=== PATIENT | female | born 1955 | race Asian ===

== ENCOUNTER → 2020-10-14 15:58 | Outpatient (CLI) | payer OTHER, SELFPAY ==
--- NOTE | ~2020-10-14 | MM_ITS ---
EXAMINATION: MM screening jan BI w bayron HISTORY: Screening mammogram TECHNIQUE: Craniocaudal and mediolateral oblique 3-D tomosynthesis images were obtained and synthetic 2-D images were generated. CAD analysis was submitted and interpreted. COMPARISON: 07/2018, 07/12/2017, bilateral digital screening mammogram examinations BREAST PARENCHYMAL COMPOSITION: The breasts are heterogeneously dense, which may obscure small masses . FINDINGS: History of removal of breast implants 17-20 years ago. Occasional benign calcifications. Images were There is no evidence of suspicious mass, calcification, or architectural distortion to suggest malignancy in either breast. There has been no suspicious int erval change. IMPRESSION: 1. No mammographic evidence of malignancy. 2. Recommend routine screening mammography in one year. BI-RADS Category 2: Benign Reviewed, dictated and finalized at location A.
== END ==
PROVIDERS: Visit Provider Obstetrics & Gynecology
DX: Z12.31 Encounter for screening mammogram for malignant neoplasm of breast (principal)
CPT/HCPCS: 77063; 77067

== ENCOUNTER 2021-02-11 09:04 | Outpatient (CLI) | payer OTHER, SELFPAY ==
[2021-02-11 10:41] LABS: Basophils Percent Auto 0.4 % (0.2-1.2); Eosinophils Absolute Auto 0.4 K/mm3 (0-0.3); Eosinophils Percent Auto 5.2 % (0-4.4); Hematocrit 35.8 % (37.0-47.0); Hemoglobin 11.6 g/dL (12.0-15.0); Immature Granulocyte Absolute 0.02 K/mm3 (0.00-0.031); Immature Granulocyte Percent A 0.3 % (0-0.5); Lymphocytes Absolute Auto 2.46 K/mm3 (0.9-3.2); Lymphocytes Percent Auto 34.6 % (18.3-44.2); Mean Corpuscular HGB Conc 32.4 g/dl (32-36); Mean Platelet Volume 10.4 fl (7.4-10.4); Monocytes Absolute Auto 0.7 K/mm3 (0.1-0.6); Monocytes Percent Auto 9.3 % (2.6-8.5); Neutrophils Absolute Auto 3.6 K/mm3 (1.3-6.7); Neutrophils Percent Auto 50.2 % (45.5-73.1); Platelet Count Result 227 k/mm3 (150-375); Red Blood Count 3.51 M/mm3 (4.2-5.4); Red Cell Distribution Width 12.6 % (11.5-14.5); White Blood Count 7.1 K/mm3 (4.5-10.0)
[2021-02-11 10:43] LABS: Add Urine Microscopic? YES; Appearance Urine Clear (Clear); Bilirubin Urine Negative (Negative); Blood Urine Negative (Negative); Color Urine Yellow (Yellow); Glucose Urine UA Negative (Negative); Ketones Urine Negative (Negative); Leukocyte Esterase Ur Negative LEU/UL (Negative); Mucus Urine Rare /lpf; Nitrate Urine Negative (Negative); Protein Urine Negative (Negative); Specific Grav Ur 1.014 (1.001-1.035); Urobilinogen Urine Negative mg/dL (<2.0); WBC Urine 0-3 /hpf
[2021-02-11 10:46] LABS: Alanine Aminotransferase 13 U/L (4-35); Albumin Level 4.8 g/dL (3.5-5.1); Alkaline Phosphatase 72 U/L (38-126); Anion Gap 10 mmol/L (8-16); Aspartate Amino Transferase 26 U/L (14-36); Bilirubin,Total 0.4 mg/dL (0.2-1.3); Blood Urea Nitrogen 22 mg/dL (7-17); Calcium 9.3 mg/dL (8.4-10.2); Carbon Dioxide 28 mmol/L (22-30); Chloride 105 mmol/L (98-107); Cholesterol 218 mg/dL (0-200); Estimated Glomerular Filt Rate > 60; Glucose 98 mg/dL (65-110); HDL Direct 55 mg/dL; Potassium 3.9 mmol/L (3.4-5.0); Sodium 143 mmol/L (137-145); Triglycerides 115 mg/dL (<150); Uric Acid 4.6 mg/dL (2.5-7.5)
[2021-02-11 10:52] LABS: LDL Cholesterol Direct 117 mg/dL
[2021-02-11 11:12] LABS: Vitamin D 25 Hydroxy 45.9 ng/mL
[2021-02-11 12:13] LABS: Folic Acid > 20.0 ng/mL (2.76->20)
== END 2021-02-11 09:05 | disposition home or self-care (01) ==
PROVIDERS: PCP Internal Medicine; Visit Provider Internal Medicine
DX: E53.8 Deficiency of other specified B group vitamins (principal); R00.2 Palpitations; M81.0 Age-related osteoporosis without current pathological fracture
CPT/HCPCS: 36415; 80053; 80061; 81001; 82306; 82607; 82746; 84443; 84550; 85025

== ENCOUNTER 2021-03-15 02:22 | Day surgery (SDC) | payer OTHER, SELFPAY ==
[2021-03-01 13:05] VITALS: BMI 19.7
--- NOTE | 2021-03-14 13:26 | PM.HPGS ---
History of Present Illness History of Present Illness Consent: Risks, benefits, and alternatives have been discussed and questions answered. Patient agrees to proceed with procedure. Chief complaint: neoplasm screening Narrative: Unique Dumont is a 66 year old female referred for colon cancer screening. Review of Systems Review of Systems: All systems reviewed & are unremarkable except as noted in HPI and below PMFSH Social History Social History Smoking status: Never smoker Alcohol intake: never Substance use: never Substance use type: does not use Living arrangements: with family Spiritual care concerns: No Meds Home Medications and Allergies Home Medications Medication Instructions Recorded Confirmed Type metoprolol succinate 25 mg PO DAILY 03/01/21 03/01/21 History Allergies Allergy/AdvReac Type Severity Reaction Status Date / Time Shrimp Allergy Mild Itching Uncoded 03/01/21 13:01 Exam Resp: Auscultation: clear to auscultation bilaterally Cardio: Rate: regular rate Rhythm: regular rhythm GI: GI Palp: Yes Soft to palpation and No Tenderness to palpation present (GI) Assessment and Plan Assessment and plan (1) Colon cancer screening: Code(s): Z12.11 - Encounter for screening for malignant neoplasm of colon Status: Acute Assessment and Plan: Colonoscopy with possible biopsy or polypectomy or cautery or injection of substances.
[2021-03-15 09:44] VITALS: BP 137/76; PULSE 90; RESP 16; TEMP 37.1; O2SAT 100; BMI 19.2
[2021-03-15] MEDS: LACTATED RINGERS 1,000 ML 150 ML IV CONT (09:55)
--- NOTE | 2021-03-15 10:28 | WPDANESEPPF ---
Anes - Initial Pre Proc Eval Procedure: Operation Date: 03/15/21 11:15 Proposed Procedures p Screening Colonoscopy - Abiodun Polk MD Date/Time: 03/15/21 10:28 Surgeon: Abiodun Polk MD Pre Op Diagnosis: neoplasm screening Patient Data Age: 66 Gender: F Height: 1.65 m Weight: 52.5 kg Last Vital Signs Temp 98.8 F 03/15/21 09:44 Pulse 90 03/15/21 09:44 Resp 16 03/15/21 09:44 BP 137/76 03/15/21 09:44 Pulse Ox 100 03/15/21 09:44 Allergies Allergy/AdvReac Type Severity Reaction Status Date / Time Shrimp Allergy Mild Itching Uncoded 03/01/21 13:01 Home Medications Medication Instructions Recorded Confirmed Type metoprolol succinate 25 mg PO DAILY 03/01/21 03/01/21 History Patient hx anesthesia problems: none Family hx anesthesia problems: none Results Review: All pre-operative results and documents have been reviewed as part of the pre-operative evaluation. [facility] Past Medical History Medical History (Updated 03/15/21 @ 10:31 by Ortega Bustos MD) Anxiety Depression Social History Social History Smoking status: Never smoker Alcohol intake: never Substance use: never Substance use type: does not use Living arrangements: with family Spiritual care concerns: No Anes - Eval Final PreProcedure Day of Procedure 03/15/21 10:28 Patient weight: normal Heart: regular rate and rhythm Lungs: clear to auscultation Airway: Mallampati scale class II Neurological: alert and oriented Last oral intake: >/= 8 hours ASA classification: II Emergent: no Anesthetic plan: proceed Anesthesia type and monitoring: general GIVS and standard monitoring Results Review: All pre-operative results and documents have been reviewed as part of the pre-operative evaluation. Informed Consent: The patient's anesthetic plan and its attendant risks and benefits were discussed with the patient/family/POA. Questions were solicited and answers provided to the satisfaction of the patient/family/POA.
--- NOTE | 2021-03-15 10:38 | P.PNAN_ITS ---
Anes - Initial Pre Proc Eval Procedure: Operation Date: 03/15/21 11:15 Proposed Procedures p Screening Colonoscopy - Abiodun Polk MD Date/Time: 03/15/21 10:38 Surgeon: Abiodun Polk MD Pre Op Diagnosis: neoplasm screening Patient Data Age: 66 Gender: F Height: 1.65 m Weight: 52.5 kg Last Vital Signs Temp 98.8 F 03/15/21 09:44 Pulse 90 03/15/21 09:44 Resp 16 03/15/21 09:44 BP 137/76 03/15/21 09:44 Pulse Ox 100 03/15/21 09:44 Allergies Allergy/AdvReac Type Severity Reaction Status Date / Time Shrimp Allergy Mild Itching Uncoded 03/01/21 13:01 Home Medications Medication Instructions Recorded Confirmed Type metoprolol succinate 25 mg PO DAILY 03/01/21 03/01/21 History Patient hx anesthesia problems: none Family hx anesthesia problems: none Results Review: All pre-operative results and documents have been reviewed as part of the pre-operative evaluation. [facility] Past Medical History Medical History (Updated 03/15/21 @ 10:38 by Ortega Bustos MD) Hypertension mild Social History Social History Smoking status: Never smoker Alcohol intake: never Substance use: never Substance use type: does not use Living arrangements: with family Spiritual care concerns: No Anes - Eval Final PreProcedure Day of Procedure 03/15/21 10:38 Patient weight: normal Heart: regular rate and rhythm Lungs: clear to auscultation Airway: Mallampati scale class II Neurological: alert and oriented Last oral intake: >/= 8 hours ASA classification: II Emergent: no Anesthetic plan: proceed Anesthesia type and monitoring: general GIVS and standard monitoring Results Review: All pre-operative results and documents have been reviewed as part of the pre-operative evaluation. Informed Consent: The patient's anesthetic plan and its attendant risks and benefits were discussed with the patient/family/POA. Questions were solicited and answers provided to the satisfaction of the patient/family/POA.
[2021-03-15] MEDS: SIMETHICONE ORAL SUSPENSION 20 MG/0.3 ML 30 ML BOTTLE 0.6 ML IRRIGATION (11:15)
[2021-03-15 11:19] VITALS: BP 123/70; PULSE 74; RESP 18; O2SAT 100
[2021-03-15 11:29] VITALS: BP 129/73; PULSE 73; RESP 17; O2SAT 100
[2021-03-15 11:39] VITALS: BP 131/76; PULSE 70; RESP 18; O2SAT 100
== END 2021-03-15 11:50 | disposition home or self-care (01) ==
PROVIDERS: PCP Internal Medicine; Visit Provider Internal Medicine Gastroenterology
PROC: 0DJD8ZZ Inspection of Lower Intestinal Tract, Via Natural or Artificial Opening Endoscopic (ICD-10-PCS; CPT 45378; principal; 2021-03-15 11:15)
DX: Z12.11 Encounter for screening for malignant neoplasm of colon (principal); Z80.0 Family history of malignant neoplasm of digestive organs; I10 Essential (primary) hypertension; F41.8 Other specified anxiety disorders
CPT/HCPCS: 45378; J2001; J2704; J7120

== ENCOUNTER → 2021-12-19 10:15 | Outpatient (CLI) | payer OTHER, SELFPAY ==
--- NOTE | ~2021-12-19 | MM_ITS ---
EXAMINATION: MM screening [facility] BI w bayorn HISTORY: Screening mammogram TECHNIQUE: Craniocaudal and mediolateral oblique 3-D tomosynthesis images were obtained and synthetic 2-D images were generated. CAD analysis was submitted and interpreted. COMPARISON: 10/14/2020, 07/14/2018, 07/12/2017 BREAST PARENCHYMAL COMPOSITION: The breasts are heterogeneously dense, which may obscure small masses . FINDINGS: Scattered benign-appearing calcifications are present. There is no suspicious mass, calcifi cation, or architectural distortion to suggest malignancy in either breast. There has been no suspici ous interval change. IMPRESSION: 1. No mammographic evidence of malignancy. 2. Recommend routine screening mammography in one year. BI-RADS Category 2: Benign finding(s). Reviewed, dictated and finalized at location A.
== END ==
PROVIDERS: PCP Internal Medicine; Visit Provider Obstetrics & Gynecology
DX: Z12.31 Encounter for screening mammogram for malignant neoplasm of breast (principal)
CPT/HCPCS: 77063; 77067

== ENCOUNTER 2023-01-20 01:55 | Emergency (ER) | payer MEDICARE, OTHER, SELFPAY ==
[2023-01-20] VITALS (17 sets, daily range): BP systolic 103–152; BP diastolic 56–90; PULSE 70–98; RESP 13–19; TEMP 37.8; O2SAT 96–100
--- NOTE | ~2023-01-20 | XR_ITS ---
XR chest 2V DATE: 01/20/2023 02:27 INDICATION: Cough TECHNIQUE: PA and lateral views COMPARISON: June 14, 2016 CT chest June 10, 2013 2 view chest FINDINGS: Bilateral hyperinflation consistent with obstructive airways disease. No pulmonary infiltra te or consolidation, pleural effusion or pulmonary vascular congestion or pneumothorax is detected. Normal heart size. No hilar or mediastinal enlargement. Osteopenia. Mild thoracic dextroscoliosis. Degenerative spurring of the thoracic spine. IMPRESSION: Bilateral hyperinflation; no active cardiopulmonary disease Reviewed, dictated and finalized at location A.
--- NOTE | 2023-01-20 01:56 | ECG_ITS ---
Measurements Intervals [place] Rate: 91 P: 83 HI: 180 QRS: 68 QRSD: 78 T: 61 QT: 359 QTc: 443 Interpretive Statements SINUS RHYTHM FREQUENT VENTRICULAR PREMATURE COMPLEXES POSSIBLE LEFT ATRIAL ENLARGEMENT POSSIBLE LEFT VENTRICULAR HYPERTROPHY BORDERLINE ST-T WAVE ABNORMALITY- INFERIOR LEADS ABNORMAL ECG NO PREVIOUS ECG AVAILABLE FOR COMPARISON Electronically Signed On 01-20-2023 7:07:25 CDT by Alan Carcamo D.O.
[2023-01-20 02:19] LABS: Basophils Percent Auto 0.4 % (0.2-1.2); Eosinophils Absolute Auto 0.1 K/mm3 (0-0.3); Eosinophils Percent Auto 1.4 % (0-4.4); Hematocrit 37.4 % (37.0-47.0); Hemoglobin 12.3 g/dL (12.0-15.0); Immature Granulocyte Absolute 0.03 K/mm3 (0.00-0.031); Immature Granulocyte Percent A 0.3 % (0-0.5); Lymphocytes Absolute Auto 0.91 K/mm3 (0.9-3.2); Lymphocytes Percent Auto 10.1 % (18.3-44.2); Mean Corpuscular HGB Conc 32.9 g/dl (32-36); Mean Corpuscular Hemoglobin 32.9 pg (26-34); Mean Platelet Volume 9.6 fl (7.4-10.4); Monocytes Absolute Auto 0.6 K/mm3 (0.1-0.6); Monocytes Percent Auto 6.9 % (2.6-8.5); Neutrophils Absolute Auto 7.3 K/mm3 (1.3-6.7); Neutrophils Percent Auto 80.9 % (45.5-73.1); Platelet Count Result 186 k/mm3 (150-375); Red Blood Count 3.74 M/mm3 (4.2-5.4); Red Cell Distribution Width 12.6 % (11.5-14.5)
[2023-01-20 02:29] LABS: Alanine Aminotransferase 16 U/L (6-35); Albumin Level 4.5 g/dL (3.5-5.1); Alkaline Phosphatase 89 U/L (38-126); Anion Gap 9 mmol/L (8-16); Aspartate Amino Transferase 30 U/L (14-36); Bilirubin,Total 0.5 mg/dL (0.2-1.3); Blood Urea Nitrogen 19 mg/dL (7-17); Calcium 9.1 mg/dL (8.4-10.2); Carbon Dioxide 27 mmol/L (22-30); Chloride 103 mmol/L (98-107); Estimated CRCL calculation 61 ml/min; Estimated Glomerular Filt Rate > 60; Glucose 125 mg/dL (65-110); Lipase 145 U/L (23-300); Potassium 4.1 mmol/L (3.4-5.0); Sodium 139 mmol/L (137-145)
[2023-01-20 02:32] LABS: INR 0.9; Prothrombin Time 12.9 Seconds (11.1-14.7)
[2023-01-20 02:33] LABS: Partial Thromboplastin Time 31.4 SECONDS (22.3-36.8)
--- NOTE | 2023-01-20 02:38 | ED.CHESTPAIN ---
HPI - Chest Pain General Chief Complaint: Chest Pain Stated Complaint: chest pain, Time Seen by Provider: 01/20/23 02:11 History of Present Illness HPI narrative: Patient presents to the emergency department with chest discomfort. Symptoms have been ongoing for the past few hours. She received the COVID-vaccine and a shingles vaccine earlier today. However she has been having episodes of chest discomfort and was scheduled to get a stress test [facility]. She was unable to get the test done because their computer systems are down. Patient denies other review of systems other than feeling hot and chills. Related Data Home Medications Medication Instructions Recorded Confirmed metoprolol succinate 25 mg 25 mg PO DAILY 03/01/21 03/01/21 tablet,extended release 24 hr Allergies Allergy/AdvReac Type Severity Reaction Status Date / Time Shrimp Allergy Mild Itching Uncoded 01/20/23 01:55 Review of Systems Review of Systems: Review of systems is negative except what is documented in the HPI [facility] Past Medical History Medical History (Updated 01/20/23 @ 03:46 by Addis Barnes MD) Hypertension mild Social History Social History Smoking status: Never smoker Alcohol intake: never Substance use: never Substance use type: does not use Living arrangements: with family Spiritual care concerns: No Exam Narrative: GENERAL: Well-appearing, well-nourished, and in no acute distress. HEAD: Normocephalic, atraumatic. EYES: PERRLA and EOMI. ENT: Nares clear, no rhinorrhea or epistaxis. Mucous membranes moist. NECK: Supple. CHEST: Clear to auscultation. No respiratory distress. HEART: Regular rate and rhythm. ABDOMEN: Soft, nontender, nondistended. EXTREMITIES: Normal range of motion. No edema. SKIN: Warm, dry, no rash. NEURO: No focal deficits. Alert and oriented x3. PSYCH: Normal mood and affect. Course Course Emergency Course: Labs ordered and grossly unremarkable. CBC CMP urinalysis and troponin all within normal limits. Mild elevation of blood sugar. Patient was scheduled to have stress test at [facility] for recurrent episodes of chest pain however heart score is 2 and troponin is negative Vital Signs Vital signs: Vital Signs Temperature 37.8 C H 01/20/23 02:04 Pulse Rate 98 09/10/23 02:04 Respiratory Rate 14 01/20/23 02:04 Blood Pressure 152/90 H 01/20/23 02:04 Pulse Oximetry 96 01/20/23 02:04 Oxygen Delivery Room Air 01/20/23 02:04 Temperature 37.8 C H 01/20/23 02:04 Pulse Rate 98 01/20/23 02:04 Respiratory Rate 14 01/20/23 02:04 Blood Pressure 152/90 H 01/20/23 02:04 Pulse Oximetry 100 01/20/23 02:27 Oxygen Delivery Room Air 01/20/23 02:27 MDM - Chest Pain MDM Narrative Medical decision making narrative: Differential diagnosis includes but not limited to chest wall discomfort, pneumonia, pleurisy, costochondritis, CAD Telemetry ordered due to patient having chest pain to evaluate for dysrhythmia. Sinus tachycardia rate of 108 evaluated by myself Lab Data 01/20/23 02:13 01/20/23 02:13 Labs: Lab Results 01/20/23 Range/Units 02:13 WBC 9.0 (4.5-10.0) K/mm3 RBC 3.74 L (4.2-5.4) M/mm3 Hgb 12.3 (12.0-15.0) g/dL Hct 37.4 (37.0-47.0) % MCV 100.0 (80-100) fl MCH 32.9 (26-34) pg MCHC 32.9 (32-36) g/dl RDW 12.6 (11.5-14.5) % Plt Count 186 (150-375) k/mm3 MPV 9.6 (7.4-10.4) fl Immature Gran % (Auto) 0.3 (0-0.5) % Neut % (Auto) 80.9 H (45.5-73.1) % Lymph % (Auto) 10.1 L (18.3-44.2) % Boyle % (Auto) 6.9 (2.6-8.5) % Eos % (Auto) 1.4 (0-4.4) % Baso % (Auto) 0.4 (0.2-1.2) % Lymph # (Auto) 0.91 (0.9-3.2) K/mm3 Boyle # (Auto) 0.6 (0.1-0.6) K/mm3 Eos # (Auto) 0.1 (0-0.3) K/mm3 Baso # (Auto) 0.0 (0.0-0.1) K/mm3 Abs Immat Gran (auto) 0.03 (0.00-0.031) K/mm3 Absol
[2023-01-20 02:41] LABS: Troponin I < 0.012 ng/mL (0.000-0.034)
[2023-01-20] MEDS: ACETAMINOPHEN 325 MG TABLET 650 MG PO (02:48)
[2023-01-20] MEDS: ASPIRIN 81 MG CHEWABLE TABLET 324 MG PO (02:48)
[2023-01-20 06:10] LABS: Troponin I < 0.012 ng/mL (0.000-0.034)
== END 2023-01-20 06:42 | disposition home or self-care (01) ==
PROVIDERS: Emergency Provider Emergency Medicine; PCP Internal Medicine
DX: R07.9 Chest pain, unspecified (principal); I10 Essential (primary) hypertension
CPT/HCPCS: 36415; 71046; 80053; 83690; 84484; 85025; 85610; 85730; 93005; 99284; A9270

== ENCOUNTER → 2023-02-27 10:40 | Outpatient (CLI) | payer MEDICARE, OTHER, SELFPAY ==
--- NOTE | ~2023-02-27 | MM_ITS ---
EXAMINATION: MM screening jan BI w bayron HISTORY: Screening TECHNIQUE: Craniocaudal and mediolateral oblique 3-D tomosynthesis images were obtained and synthetic 2-D images were generated. CAD analysis was submitted and interpreted. COMPARISON: Comparison to multiple prior studies sequentially, with oldest reviewed study dated 06/27. BREAST PARENCHYMAL COMPOSITION: There are scattered areas of fibroglandular density. FINDINGS: There is no evidence of suspicious mass, calcification, or architectural distortion to sugg est malignancy in either breast. There has been no suspicious interval change. IMPRESSION: 1. No mammographic evidence of malignancy. 2. Recommend routine screening mammography in one year. BI-RADS Category 1: Negative Reviewed, dictated and finalized at location A.
== END ==
PROVIDERS: PCP Internal Medicine; Visit Provider Internal Medicine
DX: Z12.31 Encounter for screening mammogram for malignant neoplasm of breast (principal)
CPT/HCPCS: 77063; 77067

== ENCOUNTER 2023-03-21 09:21 | Outpatient (CLI) | payer MEDICARE, OTHER, SELFPAY ==
[2023-03-21 10:37] LABS: Parathyroid Intact 30.1 pg/mL (7.5-53.5)
[2023-03-24 20:58] LABS: Osteocalcin 19 ng/mL (8-32)
== END 2023-03-21 09:22 | disposition home or self-care (01) ==
PROVIDERS: PCP Internal Medicine; Visit Provider Internal Medicine Endocrinology, Diabetes & Metabolism
DX: M81.0 Age-related osteoporosis without current pathological fracture (principal)
CPT/HCPCS: 36415; 83937; 83970

== ENCOUNTER 2023-03-25 09:40 | Outpatient (NON) | payer MEDICARE, OTHER, SELFPAY ==
[2023-03-25 10:29] LABS: Total Volume 24 Hour Urine 2000 ml
[2023-03-25 10:38] LABS: Creatinine 24 Hour Urine 0.9 gm/24 (0.8-1.8); Creatinine Urine 48.5 mg/dL
[2023-03-28 12:00] LABS: Total Volume 2000 mL; Urine Calcium 20.4 mg/dL
== END 2023-03-25 09:41 | disposition home or self-care (01) ==
LOC: ANHLAB 09:42
PROVIDERS: PCP Internal Medicine; Visit Provider Internal Medicine Endocrinology, Diabetes & Metabolism
DX: M81.0 Age-related osteoporosis without current pathological fracture (principal)
CPT/HCPCS: 81050; 82340; 82570

== ENCOUNTER 2023-04-30 10:42 | Outpatient (CLI) | payer MEDICARE, OTHER, SELFPAY ==
[2023-04-30 11:37] LABS: Total Volume 24 Hour Urine 800 ml
[2023-04-30 11:49] LABS: Creatinine 24 Hour Urine 0.7 gm/24 (0.8-1.8); Creatinine Urine 98.7 mg/dL
[2023-05-07 14:31] LABS: Total Volume 800 mL; Urine Calcium 31.6 mg/dL
== END 2023-04-30 10:43 | disposition home or self-care (01) ==
LOC: ANHLAB 10:44
PROVIDERS: PCP Internal Medicine; Visit Provider Internal Medicine Endocrinology, Diabetes & Metabolism
DX: M81.0 Age-related osteoporosis without current pathological fracture (principal); R82.994 Hypercalciuria
CPT/HCPCS: 81050; 82340; 82570

== ENCOUNTER 2023-10-28 09:27 | Outpatient (CLI) | payer MEDICARE, OTHER, SELFPAY ==
[2023-10-28 10:27] LABS: Albumin Level 4.7 g/dL (3.5-5.1); Anion Gap 9 mmol/L (4-12); Blood Urea Nitrogen 26 mg/dL (7-17); Calcium 9.6 mg/dL (8.4-10.2); Carbon Dioxide 28 mmol/L (22-30); Chloride 106 mmol/L (98-107); Estimated Glomerular Filt Rate > 60; Glucose 102 mg/dL (65-110); Phosphorus 4.6 mg/dL (2.5-4.5); Sodium 143 mmol/L (137-145)
[2023-10-28 10:45] LABS: Vitamin D 25 Hydroxy 52.1 ng/mL
[2023-10-28 10:53] LABS: Creatinine 24 Hour Urine 0.9 gm/24 (0.8-1.8); Total Volume 24 Hour Urine 850 ml
== END 2023-10-28 09:28 | disposition home or self-care (01) ==
LOC: ANHLAB 09:32
PROVIDERS: PCP Internal Medicine; Visit Provider Internal Medicine Endocrinology, Diabetes & Metabolism
DX: R82.994 Hypercalciuria (principal); M81.0 Age-related osteoporosis without current pathological fracture; R79.89 Other specified abnormal findings of blood chemistry
CPT/HCPCS: 36415; 80069; 81050; 82306; 82340; 82570

== ENCOUNTER 2024-01-23 11:08 | Outpatient (CLI) | payer MEDICARE, OTHER, SELFPAY ==
[2024-01-23 12:12] LABS: Albumin Level 4.5 g/dL (3.5-5.1); Anion Gap 11 mmol/L (4-12); Blood Urea Nitrogen 23 mg/dL (7-17); Calcium 9.5 mg/dL (8.4-10.2); Carbon Dioxide 29 mmol/L (22-30); Chloride 100 mmol/L (98-107); Estimated Glomerular Filt Rate > 60; Glucose 99 mg/dL (65-110); Phosphorus 4.2 mg/dL (2.5-4.5); Potassium 3.8 mmol/L (3.4-5.0); Sodium 140 mmol/L (137-145)
[2024-01-23 12:12] LABS: Total Volume 24 Hour Urine 1500 ml
[2024-01-23 12:21] LABS: Creatinine 24 Hour Urine 1.1 gm/24 (0.8-1.8); Creatinine Urine 78.4 mg/dL
== END 2024-01-23 11:09 | disposition home or self-care (01) ==
PROVIDERS: PCP Internal Medicine; Visit Provider Internal Medicine Endocrinology, Diabetes & Metabolism
DX: R82.994 Hypercalciuria (principal); M81.0 Age-related osteoporosis without current pathological fracture; R79.89 Other specified abnormal findings of blood chemistry
CPT/HCPCS: 36415; 80069; 81050; 82340; 82570

== ENCOUNTER 2024-04-28 10:52 | Outpatient (CLI) | payer MEDICARE, OTHER, SELFPAY ==
[2024-04-28 13:40] LABS: Albumin Level 4.5 g/dL (3.5-5.1); Anion Gap 6 mmol/L (4-12); Blood Urea Nitrogen 22 mg/dL (7-17); Calcium 9.8 mg/dL (8.4-10.2); Carbon Dioxide 30 mmol/L (22-30); Chloride 105 mmol/L (98-107); Estimated Glomerular Filt Rate > 60; Glucose 82 mg/dL (65-110); Phosphorus 3.9 mg/dL (2.5-4.5); Potassium 3.7 mmol/L (3.4-5.0); Sodium 141 mmol/L (137-145)
== END 2024-04-28 10:53 | disposition home or self-care (01) ==
PROVIDERS: PCP Internal Medicine; Visit Provider Internal Medicine Endocrinology, Diabetes & Metabolism
DX: M81.0 Age-related osteoporosis without current pathological fracture (principal)
CPT/HCPCS: 36415; 80069

== ENCOUNTER 2024-04-30 09:46 | Outpatient (NON) | payer MEDICARE, OTHER, SELFPAY ==
[2024-04-30 11:13] LABS: Creatinine Urine 95.6 mg/dL
[2024-04-30 12:53] LABS: Creatinine 24 Hour Urine 0.9 gm/24 (0.8-1.8); Total Volume 24 Hour Urine 950 ml
== END 2024-04-30 09:47 | disposition home or self-care (01) ==
LOC: ANHLAB 09:47
PROVIDERS: PCP Internal Medicine; Visit Provider Internal Medicine Endocrinology, Diabetes & Metabolism
DX: R82.994 Hypercalciuria (principal)
CPT/HCPCS: 81050; 82340; 82570

== ENCOUNTER 2024-06-01 08:13 | Outpatient (CLI) | payer MEDICARE, OTHER, SELFPAY ==
[2024-06-01 10:27] LABS: Total Volume 24 Hour Urine 2300 ml
[2024-06-01 10:31] LABS: Creatinine 24 Hour Urine 0.9 gm/24 (0.8-1.8); Creatinine Urine 40.5 mg/dL
== END 2024-06-01 08:14 | disposition home or self-care (01) ==
LOC: ANHLAB 08:14
PROVIDERS: PCP Internal Medicine; Visit Provider Internal Medicine Endocrinology, Diabetes & Metabolism
DX: R82.994 Hypercalciuria (principal); M81.0 Age-related osteoporosis without current pathological fracture
CPT/HCPCS: 81050; 82340; 82570

== ENCOUNTER 2024-08-12 13:04 | Outpatient (CLI) | payer MEDICARE, OTHER, SELFPAY ==
--- NOTE | ~2024-08-12 | MM_ITS ---
EXAMINATION: MM screening [facility] BI w bayron HISTORY: Screening TECHNIQUE: Craniocaudal and mediolateral oblique 3-D tomosynthesis images were obtained and synthetic 2-D images were generated. CAD analysis was submitted and interpreted. COMPARISON: Comparison to multiple prior studies sequentially, with oldest reviewed study dated 06/25. BREAST PARENCHYMAL COMPOSITION: Dense: The breasts are heterogeneously dense, which may obscure small masses FINDINGS: There are coarse dystrophic calcifications in the upper inner quadrant of the right breast, posterior third, consistent with fat necrosis. There are benign vascular calcifications. There is no evidence of suspicious mass, calcification, or architectural distortion to suggest malignancy in eit her breast. There has been no suspicious interval change. IMPRESSION: 1. No mammographic evidence of malignancy. 2. Recommend routine screening mammography in one year. BI-RADS Category 2: Benign finding(s). Reviewed, dictated and finalized at location A.
== END 2024-08-12 13:05 | disposition home or self-care (01) ==
LOC: MICIMG 13:05
PROVIDERS: PCP Internal Medicine; Visit Provider Internal Medicine
DX: Z12.31 Encounter for screening mammogram for malignant neoplasm of breast (principal)
CPT/HCPCS: 77063; 77067

== ENCOUNTER 2024-10-29 10:55 | Outpatient (CLI) | payer MEDICARE, OTHER, SELFPAY ==
[2024-10-29 11:37] LABS: Add Urine Microscopic? YES; Appearance Urine Clear (Clear); Bacteria Urine None Seen /hpf; Bilirubin Urine Negative (Negative); Blood Urine Trace (Negative); Color Urine Yellow (Yellow); Glucose Urine UA Negative (Negative); Ketones Urine Negative (Negative); Leukocyte Esterase Ur Negative LEU/UL (Negative); Nitrate Urine Negative (Negative); Non Pathogenic Casts 0-2; Protein Urine Negative (Negative); Specific Grav Ur 1.017 (1.001-1.035); Squamous Epithelial Cell Urine None Seen /hpf (Few); Urobilinogen Urine 0.2 mg/dL (<2.0); WBC Urine 0-5 /hpf (0-3); pH Urine 6.5 (5.0-9.0)
--- OUTSIDE RECORDS SUMMARY | 2024-10-29 11:46 | XMS_ITS | Clinical Summary ---
Author Organization [facility] Address [facility] [place] [address] Care Team Providers Care Soa Engineer Name Role Phone Julio Keating MD Primary Care Provider [phone] George Nathan MD Unavailable [phone] Allergies Active Allergy Reactions Criticality Noted Date Comments Alcohol Anaphylaxis High 12/07/2022 Medications B Complex Vitamins (VITAMIN B COMPLEX) Tab Take 1 capsule by mouth daily. 7 Active vitamin D3 (CHOLECALCIFEROL) 125 mcg Tab Take 1 tablet (5,000 Units total) by mouth daily. 7 Active vitamin E 180 MG (400 UNIT) capsule Take 1 capsule (180 mg total) by mouth daily. Active Lovelady-3 1400 MG Cap Take 1,600 mg by mouth daily. Active multi vitamin/minerals tablet Take 1 tablet by mouth daily. Active vitamin C 1000 MG tablet Take 1 tablet (1,000 mg total) by mouth daily. Active Coenzyme Q10 (COQ10) 200 MG Cap Take 1 capsule by mouth daily. Active calcium carb-cholecalcife rol 600-400 MG-UNIT Tab tablet 1 tablet daily. Active Ginkgo Biloba 120 MG Cap Take 1 capsule by mouth daily. Active Glucosamine-Chond roitin 750-600 MG Tab Take 1,500 capsules by mouth daily. Active zinc gluconate 50 MG Tab Take 1 tablet (50 mg total) by mouth daily. Active cyclobenzaprine (FLEXERIL) 5 MG tabletIndications :Muscle spasms of neck Take 1 tablet (5 mg total) by mouth nightly as needed for Muscle Spasms. 30 tablet 3 Active FORTEO 600 MCG/2.4ML injection Inject 0.08 mLs (20 mcg total) into the skin daily. 4 Active NON FORMULARY teresa Baumann eye. One capsule daily Active LORazepam (ATIVAN) 0.5 MG tabletIndications :Anxiety Take 1 tablet (0.5 mg total) by mouth every 6 (six) hours as needed for Anxiety. 30 tablet 4 Active metoprolol succinate ER (TOPROL-XL) 25 MG 24 hr tabletIndications :Primary hypertension Take 1-2 tablets (25-50 mg total) by mouth daily. 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 Palpitations Resolved Problems Problem Noted Date Diagnosed Date Resolved Date Chest pain 08/19/2023 Encounters Date Type Department Care Team Description 09/24/2024 Results Follow-Up [facility] Family & Internal [address] [address] Julio Keating MD BASIC METABOLIC PANEL 09/18/2024 9:00 AM CDT Laboratory Only [facility] & Internal [address] [address] Julio Keating MD 09/18/2024 Travel 09/10/2024 Telephone [facility] Internal [address] [address] Julio Keating MD Error 09/10/2024 Results Follow-Up [facility] Family & Internal [address] [address] Julio Keating MD CBC W/DIFF AUTOMATED, COMPREHENSIVE METABOLIC PANEL 08/19/2024 10:00 AM CDT Office Visit [facility] Family & Internal Medicine [address] [address] Julio Keating MD Follow Up; Anemia; Osteoporosis; Other (Tietze's disease); Constipation (Patient c/o constipation 1 BM every few days and she has to take OTC stool pill to help her have BM. Patient denies ABD pain or blood ins tool ); Sleep Problem (Patient c/o difficulty sleeping. She sometimes wakes up in the middle of the night to use the bathroom and has a hard time going to back to sleep. She also notes she has a racing mind at night frequently. ); Dizziness (Patient c/o feeling dizziness); Fall (Patient fell a few days ago and is experiencing LT buttocks pain and soreness in her body. ); Palpitations (Patient c/o heart palpitations during the day and SOB. Patient believes lack of sleep may be causing this. ) 08/19/[address] [address] Mannie Young MD Appointment Request 08/19/2024 Telephone [facility] Family & Internal Medicine [address] [address] Julio Keating MD Lab Results 08/19/2024 Travel 08/12/2024 Scan HEALTH INFO SRVCS Scanned, [facility] Mammogram (SCAN) 08/12/2024 Patient Outreach [facility] Family & Internal [address] [phone] Julio Keating MD Pre-visit Gap Closure from Last 3 Months Immunizations Immunization Administration Dates Next Due Abrysvo Respiratory Syncytia l Virus (RSV) 0.5 mL, PF 02/27/2023 Fluzone 6 Months+ Quad (0.5 mL Prefilled Syringe) 03/26/2019 Fluzone High Dose (IIV, triv alent, 0.5mL) 02/04/2024 Fluzone High Dose - >Age 65 (Prefilled Syringe) 12/27/2022,02/11/2022 Influenza (Generic) 01/28/2021,01/25/2020 Influenza Adult (Generic) 02/11/2022,01/25/2020 PFIZER COVID-19 (ARCE CAP), MRNA, LNP-S, PF, 30 MCG/0.3 ML LETY-SUCROSE, IM 08/13/2021 PFIZER COVID-19 (ORIGINAL FORMULATION, PURPLE CAP) mRNA, LNP-S, PF, 30 MCG/0.3 ML DOSE 02/11/2022,04/05/2021,08/16/2020,2020 PFIZER COVID-19 BIVALENT (12 +) mRNA, LNP-S, PF, 30 MCG/0.3 ML DOSE 2023,09/14/2022,02/11/2022 Pneumococcal (Prevnar 20) 02/11/2022 Prevnar(Pcv 7) 02/11/2022 Shingrix 09/19/2023,2023,02/11/2021 Tdap (Generic) 02/11/2021,04/17/2012 Zoster (Zostavax) 13117 Unt/0.65Ml 04/17/2012 Family History Medical History Relation Comments Cancer Mother Colon Cancer Mother None Other Relation Status Comments Brother Alive Father (Age 78) Mother Alive Other Sister Alive Social History Tobacco Use Types Packs/Day Years Used Date Smoking Tobacco: Never Smokeless Tobacco: Never Tobacco Cessation:Counseling Given: Not Answered Alcohol Use Standard Drinks/Week Comments Never 0 (1 standard drink = 0.6 oz pur e alcohol) PHQ-2 Answer Date Recorded Patient Health Questionnaire-2 Score 2 08/19/2024 Comments No Sex and Gender Information Value Date Recorded Sex Assigned at Female 01/07/2019 10:58 AM CDT Legal Sex Female 9:15 AM CDT Gender Identity Female 01/07/2019 10:58 AM CDT Sexual Orientation Straight 01/07/2019 10 :58 AM CDT Last Filed Vital Signs Vital Sign Reading Time Taken Comments Blood Pressure 152/74 08/19/2024 10:45 AM CDT Pulse 75 08/19/2024 10:45 AM CDT Temperature 36.4 C (97.6 F) 08/19/2024 10:45 AM CDT Respiratory Rate 14 08/19/2024 10:45 AM CDT Oxygen Saturation 98% 08/19/2024 10:45 AM CDT Inhaled Oxygen Concentration - - Weight 52 kg (114 lb 9.6 oz) 08/19/2024 10:45 AM CDT Height 152.5 cm (5' 0.05) 08/19/2024 10:45 AM C DT Body Mass Index 22.34 08/19/2024 10:45 AM CDT Plan of Treatment Upcoming Encounters Date Type Department Care Team (Late st Contact Info) Description 03/01/2025 10:00 AM CDT Office Visit [facility] Family & Internal Medicine - [address] [address] Julio Keating MD [address] [place] [id number] Health Maintenance Due Date Last Done Comments Hepatitis C 1973 Annual Medicare Wellness Visit 2022 COVID-19 Vaccine (2023- season) 2024 01/29/2024, 03/22/2023, 2023, Additional history exists Mammogram Screening 08/12/2026 08/12/2024, 02/27/2023, 12/19/2021, Additional history exists DTaP, Tdap and Td Vaccines (3 - Td or Tdap) 02/11/2031 02/11/2021, 04/17/2012 Colorectal Cancer Screening Colonoscopy (10 Years) 03/15/2031 03/15/2021 Pneumococcal Vaccine: 50+ Years Completed 02/11/2022 RSV Immunization or 60+ Years Completed 02/27/2023 Zoster Vaccines Completed 09/19/2023, 0 01/2023, 02/11/2021, Additional history exists Dexa Scan (General) Completed 05/29/2024, 04/26/2023, 02/14/2022, Additional history exists PHQ-2 (Physician Huslia) Completed 08/19/2024 Meningococcal B Vaccine Aged Out No l onger eligible based on patient's age to complete this topic Meningococcal Vaccine Aged Out No elliot wali eligible based on patient's age to complete this topic RSV Immunizations Under 20 Months Aged Out No longer eligible based on patient's age to complete this topic Procedures Procedure Name Priority Date/Time Associated Diagnosis Comments COLLECTION VENOUS BLOOD VENIPUNCTURE Routine 09/18/2024 11:33 AM CDT Hypokalemia BASIC METABOLIC PANEL Routine 09/18/2024 11:33 AM CDT Hypokalemia COLLECTION VENOUS BLOOD VENIPUNCTURE Routine 08/19/2024 1:16 PM CDT Palpitations COMPREHENSIVE METABOLIC PANEL Routine 08/19/2024 1:16 PM CDT Palpitations CBC W/DIFF AUTOMATED Routine 08/19/2024 1:16 PM CDT Palpitations MAMMOGRAM GENERIC (SCAN ORDER) 08/12/2024 BONE DENSITY/DEXA Routine 05/29/2024 12: 29 PM CQ DEVELOPER Age-related osteoporosis without current pathological fracture COLONOSCOPY GENERIC (SCAN ORDER) 03/15/2021 from Last 3 Months or Most Recently Relevant to Health Maintenance Results * (ABNORMAL) BASIC METABOLIC PANEL (09/18/2024 11:33 AM CDT) SODIUM S/P/B 143 136 - 145 MMOL/L 09/18/2024 3:04 PM CDT [facility] POTASSIUM S/P/B 3.5 3.5 - 5.1 MMOL/L 09/18/2024 3:04 PM CDT [facility] CHLORIDE S/P/B 102 98 - 107 MMOL/L 09/18/2024 3:04 PM CDT [facility] CO2 32.9(H) 21 - 32 MMOL/L 09/18/2024 4:01 PM CDT [facility] Comment:RESULTS CONFIRMED-TE ST REPEATED GLUCOSE 95 70 - 99 MG/DL 09/18/2024 3:04 PM CDT [facility] BUN 27(H) 7 - 18 MG/DL 09/18/2024 3:04 PM CDT [facility] CREATININE S/P/B 0.69 0.55 - 1.02 MG/DL 09/18/2024 3:04 PM CDT [facility] CALCIUM S/P/B 10.3 8.4 - 10.5 MG/DL 09/18/2024 3:04 PM CDT [facility] ANION GAP 8.1 5 - 15 MMOL/L 09/18/2024 4:01 PM CDT [facility] Comment:REFERENCE RANGE NOT ESTABLISHED OSMOLALITY (CALC) 301 MOSM/KG 025 3:04 PM CDT [facility] Comment:REFERENCE RANGE NOT ESTABLISHED GFR ESTIMATE >90 >90 ML/MIN/1. 73 M2 09/18/2024 3:04 PM CDT [facility] GFR NOTES GFR REFERENCE S: 09/18/2024 3:04 PM CDT [facility] Comment: THE ESTIMATED GFR IS CALCULATED USING THE 2020 CKD-EPI EQUATION. THE FOLLOWING CATEGORIES FOR GRADING RENAL FUNCTION ARE RECOMMENDED BY THE INTERNATIONAL SOCIETY OF NEPHROLOGY (KDIGO 2012 CLINICAL PRACTICE GUIDELINE). G1,NORMAL OR HIGH: >89 ml/min/1.73 m2 G2,MILDLY DECREASED: 60-89 ml/min/1.73 m2 G3A,MILDLY TO MODERATELY DECREASED: 45-59 ml/min/1.73 m2 G3B,MODERATELY TO SEVERELY DECREASED: 30-44 ml/min/1.73 m2 G4,SEVERELY DECREASED: 15-29 ml/min/1.73 m2 G5,KIDNEY FAILURE: <15 ml/min/1.73 m2 09/18/2024 11:3 3 AM CDT us Julio Keating MD LABORATORY Final Result [facility] [address] [place] [address], [place] [phone] * (ABNORMAL) COMPREHENSIVE METABOLIC PANEL (08/19/2024 1:16 PM CDT) SODIUM S/P/B 147(H) 136 - 145 MMOL/L 08/20/2024 11:55 AM CDT [facility] POTASSIUM S/P/B 3.4(L) 3.5 - 5.1 MMOL/L 08/20/2024 11:55 AM CDT [facility] CHLORIDE S/P/B 104 98 - 107 MMOL/L 08/20/2024 11:55 AM CDT [facility] CO2 29.8 21 - 32 MMOL/L 08/20/2024 11:55 AM CDT [facility] GLUCOSE 104(H) 70 - 99 MG/DL 08/20/2024 11:04 AM T [facility] BUN 31(H) 7 - 18 MG/DL 08/20/2024 11:04 AM [facility] CREATININE S/P/B 0.63 0.55 - 1.02 MG/DL 08/20/2024 11:04 AM CDT [facility] CALCIUM S/P/B 9.9 8.4 - 10.5 MG/DL 08/20/2024 11:04 AM CDT [facility] BILIRUBIN TOTAL S/P/B 0.4 0.2 - 1.0 MG/DL 08/20/2024 11:04 AM [facility] ALKALINE PHOSPHATASE S/P/B 122 55 - 142 U/L 08/20/2024 11:04 AM CDT [facility] AST 14(L) 15 - 37 U/L 08/20/2024 11:04 AM CDT [facility] ALT 10(L) 14 - 59 U/L 08/20/2024 11:04 AM CDT [facility] TOTAL PROTEIN S/P/B 7.8 6.4 - 8.2 G/DL 08/20/2024 11:04 AM T [facility] ALBUMIN S/P/B 3.9 3.4 - 5.0 G/DL 08/20/2024 11:04 AM CDT [facility] ANION GAP 13.2 5 - 15 MMOL/L 08/20/2024 11:55 AM CDT [facility] Comment:REFERENCE RANGE NOT ESTABLISHED OSMOLALITY (CALC) 311 MOSM/KG 025 11:55 AM CDT [facility] Comment:REFERENCE RANGE NOT ESTABLISHED GFR ESTIMATE >90 >90 ML/MIN/1. 73 M2 08/20/2024 11:04 AM CDT [facility] GFR NOTES GFR REFERENCE S: 08/20/2024 11:04 AM CDT [facility] Comment: THE ESTIMATED GFR IS CALCULATED USING THE 2020 CKD-EPI EQUATION. THE FOLLOWING CATEGORIES FOR GRADING RENAL FUNCTION ARE RECOMMENDED BY THE INTERNATIONAL SOCIETY OF NEPHROLOGY (KDIGO 2012 CLINICAL PRACTICE GUIDELINE). G1,NORMAL OR HIGH: >89 ml/min/1.73 m2 G2,MILDLY DECREASED: 60-89 ml/min/1.73 m2 G3A,MILDLY TO MODERATELY DECREASED: 45-59 ml/min/1.73 m2 G3B,MODERATELY TO SEVERELY DECREASED: 30-44 ml/min/1.73 m2 G4,SEVERELY DECREASED: 15-29 ml/min/1.73 m2 G5,KIDNEY FAILURE: <15 ml/min/1.73 m2 08/19/2024 1:16 PM CDT Julio Keating MD LABORATORY Final Result [facility] [address] [place] [address], * (ABNORMAL) CBC W/DIFF AUTOMATED (08/19/2024 1:16 PM CDT) WBC 6.82 4.00 - 10.80 x10'3/uL 08/19/2024 8:21 PM CDT [facility] RBC 3.63(L) 4.10 - 5.40 x10'6/uL 08/19/2024 8:21 PM CDT [facility] HGB 11.7(L) 12.0 - 16.0 G/DL 08/19/2024 8:21 PM CDT [facility] HCT 36.2 36.0 - 47.0 % 08/19/2024 8:21 PM CDT [facility] MCV 99.7 78.0 - 100.0 FL 08/19/2024 8:21 PM CDT [facility] MCH 32.2(H) 27.0 - 31.0 PG 08/19/2024 8:21 PM CDT [facility] MCHC 32.3(L) 33.0 - 36.0 G/DL 08/19/2024 8:21 PM CDT [facility] RDW 12.7 11.5 - 14.5 % 08/19/2024 8:21 PM CDT [facility] PLT 249 150 - 350 x10'3/uL 08/19/2024 8:21 PM CDT [facility] MPV 10.6(H) 7.4 - 10.4 FL 08/19/2024 8:21 PM CDT [facility] DIFFERENTIAL TYPE AUTOMATED DIFFERENTIAL 08/19/2024 8:21 PM CDT [facility] NEUTROPHILS % 50.0 % 08/19/2024 8:21 PM CDT [facility] LYMPHOCYTES % 37.5 % 08/19/2024 8:21 PM CDT [facility] MONOCYTES % 9.4 % 08/19/2024 8:21 PM CDT [facility] EOSINOPHILS % 2.5 % 08/19/2024 8:21 PM CDT [facility] BASOPHILS % 0.3 % 08/19/2024 8:21 PM CDT [facility] IMMATURE GRANS % 0.3 % 08/19/2024 8:21 PM CDT [facility] ABS. NEUTROPHILS 3.41 1.60 - 8.30 x10'3/uL 08/19/2024 8:21 PM CDT [facility] ABS. LYMPHOCYTES 2.56 0.80 - 4.70 x10'3/uL 08/19/2024 8:21 PM CDT [facility] ABS. MONOCYTES 0.64 0.00 - 1.50 x10'3/uL 08/19/2024 8:21 PM CDT [facility] ABS. EOSINOPHILS 0.17 0.00 - 0.40 x10'3/uL 08/19/2024 8:21 PM CDT [facility] ABS. BASOPHILS 0.02 0.00 - 0.20 x10'3/uL 08/19/2024 8:21 PM CDT [facility] ABS. IMMATURE GRANULOCYTES 0.02 0.00 - 0.03 x10'3/uL 08/19/2024 8:21 PM CDT [facility] 08/19/2024 1:16 PM CDT Julio Keating MD LABORATORY Final Result [facility] [address] [place] [address], * MAMMOGRAM GENERIC (SCAN ORDER) (08/12/2024) Anatomical Region Laterality Modality Other 08/12/2024 us [facility] Scanned SCANNING Final Resu lt * BONE DENSITY/DEXA (05/29/2024 12:29 PM CQ DEVELOPER) Anatomical Region Laterality Modality Bone Mammography 05/29/2024 1:57 PM CQ DEVELOPER Impressions 05/29/2024 1:59 PM CQ DEVELOPER IMPRESSION: WHO Classification: Osteoporosis. RECOMMENDATIONS: All patients should ensure an adequate intake of dietary calcium and vitamin D. The NOF recommend adults under the age of 50 need 1000 mg of calcium and 400-800 IU of vitamin D daily. Effective therapy for the prevention and treatment of osteoporosis include bisphosphonates. FOLLOW-UP: People with diagnosed cases of osteoporosis or at high risk for fracture should have regular bone mineral density test. For patients eligible for Medicare, routine testing is allowed once every 2 years. Testing frequency can be increased to one year for patients who have rapidly progressing disease, those who are receiving or discontinuing medical therapy to restore bone mass, or have additional risk factors. Ordered By: ABIGAIL PERKINS Interpreted By: Al Tafoya, 05/29/2024 1:57 PM Narrative 05/29/2024 1:59 PM CQ DEVELOPER [facility] [place] [address] EXAMINATION: BONE DENSITY/DEXA INDICATIONS: Age-related osteoporosis without current pathological fracture COMPARISON: 04/26/2023 TECHNIQUE: DEXA bone mineral density evaluation was performed in the AP projection over the lumbar spine and both hips utilizing standard imaging techniques. FINDINGS: The BMD measured at the AP spine L1-L4 is 0.813 g/cm? with a T-score of -2.1 (previously 0.727 g/cm? with a T-score of -2.9). The BMD measured at the left femoral neck is 0.5-0 g/cm? with a T-score of -3.0 (previously 0.500 g/cm? with a T-score of -3.1). The BMD measured at the left hip is 0.726 g/cm? with a T-score of -1.8 (previously 0.701 g/cm? with a T-score of -2.0). The BMD measured at the right femoral neck is 0.579 g/cm? with a T-score of -2.4 (previously 0.588 g/cm? with a T-score of -2.4). The BMD measured at the right hip is 0.758 g/cm? with a T-score of -1.5 (previously 0.762 g/cm? with a T-score of -1.5). FRAX 10-year fracture risk: Major Osteoporotic Fracture: 8.1% Hip Fracture: 2.4% Procedure Note Al Tafoya MD - 05/29/2024 [facility] [place] [address] EXAMINATION: BONE DENSITY/DEXA INDICATIONS: Age-related osteoporosis without current pathologicalfracture COMPARISON: 04/26/2023 TECHNIQUE: DEXA bone mineral density evaluation was performed in the APprojection over the lumbar spine and both hips utilizing standard imagingtechniques. FINDINGS: The BMD measured at the AP spine L1-L4 is 0.813 g/cm? with a T-score of-2.1 (previously 0.727 g/cm? with a T-score of -2.9). The BMD measured at the left femoral neck is 0.5-0 g/cm? with a T-score of-3.0 (previously 0.500 g/cm? with a T-score of -3.1). The BMD measured at the left hip is 0.726 g/cm? with a T-score of - 1.8(previously 0.701 g/cm? with a T-score of -2.0). The BMD measured at the right femoral neck is 0.579 g/cm? with a T-scoreof -2.4 (previously 0.588 g/cm? with a T-score of -2.4). The BMD measured at the right hip is 0.758 g/cm? with a T-score of - 1.5(previously 0.762 g/cm? with a T-score of -1.5). FRAX 10-year fracture risk: Major Osteoporotic Fracture: 8.1% Hip Fracture: 2.4% IMPRESSION: WHO Classification: Osteoporosis. RECOMMENDATIONS: All patients should ensure an adequate intake of dietary calcium andvitamin D. The NOF recommend adults under the age of 50 need 1000 mg ofcalcium and 400-800 IU of vitamin D daily. Effective therapy for theprevention and treatment of osteoporosis include bisphosphonates. FOLLOW-UP: People with diagnosed cases of osteoporosis or at high risk for fractureshould have regular bone mineral density test. For patients eligible forMedicare, routine testing is allowed once every 2 years. Testing frequencycan be increased to one year for patients who have rapidly progressingdisease, those who are receiving or discontinuing medical therapy torestore bone mass, or have additional risk factors. Ordered By: ABIGAIL PERKINS Interpreted By: Al Tafoya, 05/29/2024 1:57 PM Abigail Perkins MD DEXA Final Result * COLONOSCOPY GENERIC (03/15/2021) 03/15/2021 Narrative 03/15/2021 Ordered by an unspecified provider. us Documents Scanned SCANNING Final Result from Last 3 Months or Most Recently Relevant to Health Maintenance Insurance MEDICARE [facility] Care Teams Soa Engineer Relationship Specialty Start Date End Date Julio Keating MD [address] [place] [address] PCP - General INTERNAL MEDICINE 09/10/16 George Nathan MD [address] [place] [address] Zirconia Tear Down Man CARDIOVASCULAR DISEASE 09/10/16
--- OUTSIDE RECORDS SUMMARY | 2024-10-29 11:46 | XMS_ITS | Encounter Summary ---
Author Organization [facility] Address [facility] [place] [address] Care Team Providers Care Skates Operator Name Role Phone Julio Keating MD Primary Care Provider [phone] George Nathan MD Unavailable [phone] Encounter Details Date Type Department Care Team (Late st Contact Info) Description 09/19/2016 Abstract [facility] AT [address] [address] Crow Mendoza MA Social History Tobacco Use Types Packs/Day Years Used Date Smoking Tobacco: Never Smokeless Tobacco: Never Alcohol Use Standard Drinks/Week Comments No 0 (1 standard drink = 0.6 oz pur e alcohol) Comments Unknown Sex and Gender Information Value Date Recorded Sex Assigned at Female 01/07/2019 10:58 AM CDT Legal Sex Female 9:15 AM CDT Gender Identity Female 01/07/2019 10:58 AM CDT Sexual Orientation Straight 01/07/2019 10 :58 AM CDT documented as of this encounter Plan of Treatment Upcoming Encounters Date Type Department Care Team (Late st Contact Info) Description 03/01/2025 10:00 AM CDT Office Visit [facility] Family & Internal Medicine - [address] [address] Julio Keating MD [address] [place] [id number] documented as of this encounter Procedures Procedure Name Priority Date/Time Associated Diagnosis Comments CBC (OUTSIDE LAB) Routine 06/15/2016 COMPREHENSIVE METABOLIC PANEL Routine 06/15/2016 LIPID PANEL Routine 06/15/2016 THYROID STIM HORMONE TSH Routine 06/15/2016 documented in this encounter Results * THYROID STIM HORMONE, TSH (06/15/2016) TSH 1.890 06/15/2016 us Doc [facility] Abstract LABORATORY Final Result * CBC (OUTSIDE LAB) (06/15/2016) WBC 5.0 HGB 10.9 HCT 32.9 PLT 179 06/15/2016 us Doc [facility] Abstract LAB-OUTSIDE/ABSTRACTED Final Result * LIPID PANEL (06/15/2016) CHOLESTEROL 188 HDL 62 TRIGLYCERIDES 146 LDL (CALCULATED) 84 06/15/2016 us Doc [facility] Abstract LABORATORY Final Result * COMPREHENSIVE METABOLIC PANEL (06/15/2016) SODIUM S/P/B 145 POTASSIUM S/P/B 4.2 CO2 33 CHLORIDE S/P/B 104 GLUCOSE 86 CALCIUM S/P/B 9.1 BUN 18 CREATININE S/P/B 0.6 0.5 - 1.0 EGFR NON-AFR. AMER. >60 <=90 ALKALINE PHOSPHATASE S/P/B 69 ALT 27 AST 24 BILIRUBIN TOTAL S/P/B 0.6 ALBUMIN S/P/B 4.1 3.5 - 5.0 TOTAL PROTEIN S/P/B 7.0 06/15/2016 us Doc [facility] Abstract LABORATORY Final Result documented in this encounter Visit Diagnoses Not on filedocumented in this encounter Care Teams Skates Operator Relationship Specialty Start Date End Date Julio Keating MD [address] [place] [address] PCP - General INTERNAL MEDICINE 09/10/16 George Nathan MD [address] [place] [address] Renan Personal Development Coach CARDIOVASCULAR DISEASE 09/10/16 documented as of this encounter
--- OUTSIDE RECORDS SUMMARY | 2024-10-29 11:46 | XMS_ITS | Clinical Summary ---
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 Gender Identity Not on file Sexual Orientation Not on file Plan of Treatment Health Maintenance Due Date Last Done Comments DEXA Bone Density 1955 Hepatitis C Virus (HCV) Screening 1955 Colonoscopy 2002 Colorectal Cancer Screening 2002 Cologuard 2007 Immunochemical Fecal Occult Blood 2007 Mammogram 2007 Pneumococcal Immunization (5 0+ years) (1 of 1 - PCV) 2007 Zoster Immunization (2 of 2) 04/08/2021 02/11/2021 Influenza Immunization (#1) 01/12/202401/11, 01/25/2020, 03/26/2019 SARS-COV-2 Immunization ( season) 2024 04/05/2021, 08/16/2020, 07/26/2020 Respiratory Syncytial Virus (RSV) Immunization (Adult) (1 - 1-dose 75+ series) 01/20/2032 DTaP/Tdap/Td Immunization Discontinued 02/11/2021 TdaP Immunization Completed 02/11/2021 Hepatitis B Immunization Aged Out No longer eligible based on patient's age to complete this topic Meningococcal Immunization (ACWY) Aged Out No longer eligible based on patient's age to complete this topic Rotavirus Immunization Aged Out No lo nger eligible based on patient's age to complete this topic
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
--- OUTSIDE RECORDS SUMMARY | 2024-10-29 11:46 | XMS_ITS | Encounter Summary ---
Author Organization [facility] Address [facility] [place] [address] Care Team Providers Care Bulkhead Carpenter Name Role Phone Julio Keating MD Primary Care Provider [phone] George Nathan MD Unavailable Encounter Details Date Type Department Care Team (Latest Contact Info) Description 09/10/2024 Results Follow-Up [facility] Family & Internal Medicine [facility] [address] [place] [address] Julio Keating MD [address] [place], [place] [phone] CBC W/DIFF AUTOMATED, COMPREHENSIVE METABOLIC PANEL Social History Tobacco Use Types Packs/Day Years Used Date Smoking Tobacco: Never Smokeless Tobacco: Never Alcohol Use Standard Drinks/Week Comments Never 0 [...] AM CDT documented as of this encounter Progress Notes * Mackenzie Luna MA - 09/11/2024 11:30 AM CDT Patient informed and v/u of results and recommendations. Scheduled for lab appt and mailed copy of results to home address per patient request. * Julio Keating MD - 09/10/2024 1:12 PM CDT Potassium was low on labs, recommend repeat BMP nonfasting. Mild anemia, which is longstanding. documented in this encounter Plan of Treatment Upcoming Encounters Date Type Department Care Team (Late st Contact Info) Description 03/01/2025 10:00 AM CDT Office Visit [facility] Family & Internal Medicine - [place] [address] [place] [address] Julio Keating MD [address] [place] [phone] documented as of this encounter Results * (ABNORMAL) BASIC METABOLIC PANEL (09/18/2024 11:33 AM CDT) [facility] SODIUM S/P/B 143 136 - 145 MMOL/L 09/18/2024 3:04 PM CDT [facility] POTASSIUM S/P/B 3.5 3.5 - 5.1 MMOL/L 09/18/2024 3:04 PM CDT -[facility] CHLORIDE S/P/B 102 98 - 107 MMOL/L 09/18/2024 3:04 PM CDT [facility] CO2 32.9(H) 21 - 32 MMOL/L 09/18/2024 4:01 PM CDT [facility] Comment:RESULTS CONFIRMED-TE ST REPEATED GLUCOSE 95 70 - 99 MG/DL 09/18/2024 3:04 PM CDT [facility] BUN 27(H) 7 - 18 MG/DL 09/18/2024 3:04 PM CDT [facility] CREATININE S/P/B 0.69 0.55 - 1.02 MG/DL 09/18/2024 3:04 PM CDT [facility] CALCIUM S/P/B 10.3 8.4 - 10.5 MG/DL 09/18/2024 3:04 PM CDT [facility] ANION GAP 8.1 5 - 15 MMOL/L 09/18/2024 4:01 PM CDT [facility] Comment:REFERENCE RANGE NOT ESTABLISHED OSMOLALITY (CALC) 301 MOSM/KG 025 3:04 PM CDT [facility] Comment:REFERENCE RANGE NOT ESTABLISHED GFR ESTIMATE >90 >90 ML/MIN/1. 73 M2 09/18/2024 3:04 PM CDT [facility] GFR NOTES GFR REFERENCE S: 09/18/2024 3:04 PM CDT [facility] Comment: THE ESTIMATED GFR IS CALCULATED USING [...] us Julio Keating MD LABORATORY Final Result [facility] [address] [place] [address], documented in this encounter Visit Diagnoses Diagnosis Hypokalemia- Primary Hypopotassemia documented in this encounter Additional Health Concerns Assessment Noted Time PHQ-9 Depression Total Score: 5 08/20/19 25 12:15 PM CDT documented as of this encounter Care Teams Bulkhead Carpenter Relationship Specialty Start Date End Date Julio Keating MD [address] [place] [address] PCP - General INTERNAL MEDICINE 09/10/16 George Nathan MD [address] [place] [address] Renan Insulation Worker Interior Surface CARDIOVASCULAR DISEASE 09/10/16 documented as of this encounter
[2024-10-29 11:49] LABS: Albumin Level 4.6 g/dL (3.5-5.1); Anion Gap 10 mmol/L (4-12); Blood Urea Nitrogen 23 mg/dL (7-17); Calcium 9.9 mg/dL (8.4-10.2); Carbon Dioxide 30 mmol/L (22-30); Chloride 101 mmol/L (98-107); Estimated Glomerular Filt Rate > 60; Glucose 117 mg/dL (65-110); Phosphorus 3.4 mg/dL (2.5-4.5); Potassium 3.5 mmol/L (3.4-5.0); Sodium 141 mmol/L (137-145)
[2024-10-29 12:17] LABS: Vitamin D 25 Hydroxy 66.5 ng/mL
== END 2024-10-29 10:56 | disposition home or self-care (01) ==
PROVIDERS: PCP Internal Medicine; Visit Provider Internal Medicine Endocrinology, Diabetes & Metabolism
DX: R82.994 Hypercalciuria (principal); M81.0 Age-related osteoporosis without current pathological fracture; R79.89 Other specified abnormal findings of blood chemistry; R35.0 Frequency of micturition
CPT/HCPCS: 36415; 80069; 81001; 82306

== ENCOUNTER 2024-10-31 09:14 | Outpatient (NON) | payer MEDICARE, OTHER, SELFPAY ==
[2024-10-31 10:48] LABS: Creatinine Urine 50.8 mg/dL
[2024-10-31 10:52] LABS: Creatinine 24 Hour Urine 0.9 gm/24 (0.8-1.8); Total Volume 24 Hour Urine 1800 ml
[2024-11-04 07:41] LABS: Total Volume 1950
== END 2024-10-31 09:15 | disposition home or self-care (01) ==
LOC: ANHLAB 09:15
PROVIDERS: PCP Internal Medicine; Visit Provider Internal Medicine Endocrinology, Diabetes & Metabolism
DX: R82.994 Hypercalciuria (principal); M81.0 Age-related osteoporosis without current pathological fracture; R79.89 Other specified abnormal findings of blood chemistry
CPT/HCPCS: 81050; 82340; 82570